=== PATIENT | female | born 1965 | race Caucasian/White ===

== ENCOUNTER → 2020-10-02 | Outpatient (CLI) | payer OTHER ==
[~2020-10-02] VITALS: Ht 175.3 cm; Wt 76.2 kg
[~2020-10-02] MED LIST: ACETAMINOPHEN650 M5 PO; BELSOMRA20 MG PO; BLACK ELDERBER1 EACH PO; BUSPAR30 MG PO; CELEBREX 200 M200 MG PO; FLEXERIL PO; FLONASE 0.05%50 MCG NARES; IBUPROFEN 200200 M1 PO; IMITREX 50 MG T50 MG PO; IMITREX4 MG/0.5 M SQ; NORVASC10 MG PO; PAXIL40 MG PO; ROXICODONE30 M1 PO; TRAZODONE HCL100 MG PO; VALIUM PO; VITAMIN B-12100 MC1 PO; VITAMIN C500 M1 PO; ZANAFLEX4 M1 PO
--- NOTE | ~2020-10-02 | HPC ---
[facility] [place] [address] PAIN MANAGEMENT CONSULTATION Name: DEE KELSEY Room #: REG [facility].#: [id number] Admission: 10/02/20 Attend Phys: Adonis Flowers DO Discharge: Date of : 61 Report #: [id number] THIS REPORT FOR: cc: ANA CRISTINA MCWILLIAMS Physician not on staff Adonis Flowers DO ~ cc: LAWRENCE Pike DATE OF SERVICE: 10/02/2020 CHIEF COMPLAINT: Neck pain, right wrist pain, low back pain, bilateral lower extremity pain, right foot pain, right ankle pain. HISTORY OF PRESENT ILLNESS: As you know, the patient is a very unfortunate 55-year-old female who reports longstanding generalized pain disorder involving the cervical spine, lumbar spine, bilateral lower extremities, right wrist and right foot. She is sought evaluation and treatment through multiple physicians over the years. She has seen Dr. Kirby, Dr. Schumacher, Dr. Pond and Dr. Blackman for pain management. She is even undergone spinal cord stimulator trial implantation about [address] Blackman which according to the patient exacerbated symptoms. She is undergoing injections with Dr. Chapin every 2 months, but is noticing minimal benefit. The patient reports multiple injuries over the years. No specific injury in regards to her referral for lumbar pain and lower extremity pain. She has undergone surgery with Dr. Ash Farfan in the past. Apparently, no improvement in symptoms with that surgery. She reports that she was on 40 mg of OxyContin up to 4 times a day with Dr. Noland, receiving oxycodone 20 mg t.i.d. p.r.n. for breakthrough pain, which she stated worked really well. She is extremely emotional and labile today, crying throughout the evaluation and history collection process here today at our clinic. It was noted that the patient recently saw Neurosurgery and advised her EMG showed no concerning findings in the upper extremities, though the patient is not complaining of any right upper extremity pain except for her right wrist symptoms. She has been referred to our clinic to discuss options for treatment. The patient reports today her pain is constant with intermittent exacerbations. She describes the pain as burning, shooting, cramping, aching, crushing, gnawing, throbbing, pounding, sharp, stabbing, tender, numbness and tingling. Places current pain score 10/10, daily average at 10/10, worst pain has been is 10/10. The patient states the pain is exacerbated with standing, walking or doing any activities. Pain has been improved only by high dose opioid medications. She has been referred to our service to discuss treatment options for her symptoms. PAST MEDICAL HISTORY: 1. Hepatitis C. 2. Generalized arthralgias. 3. Personality disorder. [address] [address] PAIN MANAGEMENT CONSULTATION Name: DEE KELSEY Yari Room #: REG [facility] Teresa#: [id number] Admission: 10/02/20 Attend Phys: Adonis Flowers DO Discharge: Date of : 61 Report #: [id number] 4. Migraine headaches. 5. Tremors. 6. Chronic memory loss. 7. Traumatic brain injury. 8. Anxiety disorder. 9. Depression. 10. Pelvic inflammatory disease. 11. Fibromyalgia. 12. Anemia. PAST SURGICAL HISTORY: 1. Appendectomy, section, pelvic fracture with stabilization, tubal ligation, exploratory laparotomy for endometriosis. 2. Liver biopsy. 3. Spinal fusion. SOCIAL HISTORY: The patient is a former smoker, quit in 2007. Denies IV or illicit drug use. Denies any chronic alcohol use. She is on disability, has been so for years. She is unaccompanied at today's visit. ALLERGIES: PENICILLIN, CIPROFLOXACIN, OPANA, DARVON, SEPTRA, GABITRIL, BILL AND LYRICA. CURRENT MEDICATIONS: Fluticasone 2 sprays each nostril per day, vitamin C 500 mg per day, Elderberry fruit and flower extract 1 tab per day, cyanocobalamin 100 mcg per day, acetaminophen 650 mg 3 times a day, Belsomra 20 mg once a day, sumatriptan 50 mg p.r.n., trazodone 100 mg p.o. at bedtime, amlodipine 10 mg per day, buspirone 30 mg 3 times a day, cyclobenzaprine 10 mg 3 times a day, celecoxib 200 mg twice a day. IMAGING: No imaging available. PQRS: The patient reports arthritic changes of the cervical spine, lumbar spine, bilateral wrists, bilateral hips, knees and ankles. No rheumatoid arthritis. She is placing current pain score 9/10. She is a fall risk and has had multiple falls in the last 3 months. She does utilize ambulatory device in the form of a cane today. She is not on blood thinners, but is treated for hypertension. She is on no opioids at this time, but has a moderate risk of opioid addiction based on our assessment tool. Pain impact is 59/70, severe interference with daily activities secondary to pain. PHYSICAL EXAMINATION: VITAL SIGNS: Blood pressure 147/108, pulse is 122, respiratory rate 22, O2 sats 97% on room air. Height 5 feet 9 inches tall, weight 168 pounds, BMI calculated 24.8. GENERAL: Well-developed, well-nourished, well-hydrated 55-year-old female, [facility] [address] [place] [address] PAIN MANAGEMENT CONSULTATION Name: DEE KELSEY [facility] [id number] Admission: 10/02/20 Attend Phys: Adonis Flowers DO Discharge: Date of : 61 Report #: [id number] appears much older than stated age, placing current pain score 9/10. HEENT: Normocephalic, atraumatic. Pupils equal, round and responsive to light. She is wearing a mask in compliance with COVID-19 regulations. She is very emotional and labile. LUNGS: Appear clear. No wheeze or rhonchi. No appreciative rales, though there is prolonged expiratory phase. CARDIOVASCULAR: Tachycardic. No appreciable gallop, no rub. ABDOMEN: Soft, mildly obese. EXTREMITIES: Show no clubbing, no cyanosis. No appreciable edema. MUSCULOSKELETAL: The patient has tenderness to palpation at 16 of 18 tender points indicative of myofascial pain syndrome. Seated straight leg raising negative. Supine straight leg raising negative. Fabere's test is negative. Modified Gaenslen's positive for axial low back pain. Ankle clonus negative. Babinski is negative. Gait is antalgic. The patient is utilizing ambulatory devices for balance and mobility. Muscle bulk and tone is symmetrical in lower extremities. There is no focal weakness. Lumbar provocation testing is met with pain in all planes of motion. ASSESSMENT: 1. Chronic pain. 2. Myofascial symptoms indicative of fibromyalgia. 3. Chronic low back pain. 4. Opioid dependency. PLAN: 1. Based on today's physical exam and history the patient has provided, the description the patient uses in regards to pain as well as the generalized location of symptoms, it would appear her symptoms are more related to a myofascial pain syndrome that any specific pathology of radicular symptomatology. EMG is confirmatory that symptoms in the upper extremity are unrelated to cervical radiculopathy. I am unable to elicit any symptoms of lumbar radiculopathy based on physical exam today. The patient and I discussed at length the various treatment options we have for generalized pain disorder. The following was discussed with the patient today. Today, we discussed with the patient treatment options including physical therapy, stretching exercises, core strengthening and a concerted effort at weight loss along with aqua therapy to help with pain control. The patient indicates that she does very well in water. Once again more consistent with a fibromyalgia-like picture. We discussed interventional therapies. The patient reports that she has undergone epidural injections with Dr. Kirby, Dr. Schumacher, Dr. Pond, Dr. Betancur,and Dr. Blackman. She continues to receive injections by Dr. Chapin, but does not feel that these have been quite beneficial. We discussed with the patient surgical options, though I do not feel that she is a candidate for surgery. We also discussed with the patient the possibility of looking towards an intrathecal pump as a treatment course. She is interested in [address] [address] PAIN MANAGEMENT CONSULTATION Name: GLADYSDesDEE Room #: REG [facility] Teresa#: [id number] Admission: 10/02/20 Attend Phys: Adonis Flowers DO Discharge: Date of : 61 Report #: [id number] the intrathecal pump. 2. The patient was advised that we do not provide intrathecal pump therapy with our services, though these are offered through her neurosurgery team. She is going to follow up with their services in regards to intrathecal pump options. This would provide the patient with medication that could improve her overall generalized symptoms with minimizing the potential side effects. I have given the patient information about the [employer] intrathecal pump to evaluate at home. She will be contacting Neurosurgery in regards to possible trial and implantation. I did advise the patient that this option may be able to provide some improvement, though it would be predicated on the evaluation through the implanting [facility]ician [facility]. She will be following up with Neurosurgery in regards to this possible treatment option. 3. No medication changes made at today's visit. We recommend the patient continue current medical therapy as prior prescribed. 4. We wish to thank nurse practitioner, Michelle Carvajal for the opportunity to see the patient in consultation. Given the generalized nature of the patient's symptoms, her lack of improvement with a traditional treatment options for generalized pain and focused pain treatments, we do not have an option of treatment that has not been trialled and failed in the past. We appreciate the opportunity to evaluate the patient unfortunately we have nothing new to offer the patient has not been trialed and failed in the past. Again, we wish to thank you for the opportunity to see the patient in consultation. By: [id number] Adonis Flowers DO /paula
[2020-10-02 13:59] VITALS: BP 147/108
--- NOTE | 2020-10-02 14:50 | NUR ---
Pain Clinic Assessment: 1. History of Osteoarthritis: PELVIS WRIST KNEES NECK History of Rheumatoid Arthritis: Not Applicable 2. Height: 5 ft. 9 in. 175.3 cm. Weight: 168.0 lb. oz. 76.204 kg. Patient's BMI: 24.8 3. Vital Signs: BP: 147/108 Pulse: 122 Resp: 22 Temp: 02 Sat: 97 ECG Mon: 4. Pain Intensity: 9 5. Fall Risk: Dizziness: N Needs help standing or walking: Y Fallen in the last 3 months: Y Fall risk comments: 6. Patient on Blood Thinner: None 7. History of Hypertension: Y 8. Opioid Therapy greater than 6 weeks: Opiate Contract Signed: 9. Risk Assessment Tool Provided: 4 MODERATE RISK 10. Functional Assessment Tool: 59/70 11. Recreational Drug Use: Never Drug Type: Tobacco Use: Former Smoker Tobacco Type: Cigarettes Amount or Packs/day: How Many Years: Alcohol Use: No Frequency: Quant:
== END ==
LOC: PAIN 10:56
PROVIDERS: ATTEND Anesthesiology Pain Medicine
DX: G43.909 Migraine, unspecified, not intractable, without status migrainosus (principal); M19.90 Unspecified osteoarthritis, unspecified site; F41.9 Anxiety disorder, unspecified; F32.9 Major depressive disorder, single episode, unspecified; Z79.899 Other long term (current) drug therapy; Z79.891 Long term (current) use of opiate analgesic